=== PATIENT | female | born 1955 | race Caucasian/White ===

== ENCOUNTER 2016-08-07 18:49 | Inpatient (IN) ==
[2016-08-07] MEDS ORDERED: Ondansetron 4 MG/2 ML VIAL IVP ONE (18:51)
[2016-08-07] MEDS ORDERED: *HR* HYDROmorphone (PF) 1 MG/ML SYRINGE IVP ONE ×2 (18:51→19:03)
--- NOTE | 2016-08-07 18:57 | Emergency Department Note ---
Disposition Clinical Impression: Femoral fracture Qualifiers: Encounter type: initial encounter Femur location: unspecified portion of femur Fracture type: closed Fracture morphology: unspecified fracture morphology Laterality: left Qualified Code(s): S72.92XA - Unspecified fracture of left femur, initial encounter for closed fracture Disposition: Admitted As Inpatient Condition: Good Lower Extremity Injury HPI - General Chief Complaint: ED Extremity Injury, Lower Stated Complaint: Broked left leg Time Seen by Provider: 08/07/16 18:51 Source: patient Mode of arrival: EMS Limitations: physical limitation Nursing Notes Reviewed: Yes Vital Signs Reviewed: Yes - History of Present Illness HPI Narrative: 61-year-old female presents to the ER with a chief complaint of left hip and proximal thigh pain. Patient arrives via EMS. She reports that prior to arrival that she was walking through her house and slipped on her [employer] wrestling belt. She states that she fell on her left side around her hip causing pain. She denies any head injury or loss of consciousness. She is not on any antiplatelet or anticoagulation. EMS was called and the patient was transported in. She has an obvious deformity to left proximal thigh. She denies any numbness tingling or paresthesias. No other complaints. 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 Cardiovascular: Denies: chest pain Respiratory: Denies: dyspnea Gastrointestinal: Denies: abdominal pain Musculoskeletal: Reports: other (Left hip pain). Denies: back pain, neck pain Neurological: Denies: headache, numbness, paresthesias Past Medical History - Past Medical History Attestation: Yes The following information was validated with the patient. Source: patient Medical history: Reports: non-contributory Surgical history: Reports: non-contributory - Social History Smoking Status: Current every day smoker Smokeless Tobacco Status: No Alcohol use: Reports: unknown Physical Exam - General Limitations: physical limitation General appearance: alert, in no apparent distress - Head Head exam: atraumatic, normocephalic, normal inspection - Eye Eye exam: Present: normal appearance, EOMI - ENT ENT exam: normal exam - Neck Neck exam: Present: normal inspection, full ROM - Chest Chest inspection: Present: normal inspection, symmetric chest wall rise - Respiratory Respiratory exam: Present: normal lung sounds bilaterally - Cardiovascular Cardiovascular exam: Present: regular rate, normal rhythm, normal heart sounds - Abdominal Exam Abdominal exam: Present: soft, Non-Tender. Absent: tenderness - Extremities Exam Extremities exam: Present: normal inspection, full ROM - Expanded Upper Extremity Exam Shoulder exam: Present: normal inspection, full ROM Arm exam: Present: normal inspection, full ROM Elbow exam: Present: normal inspection, full ROM Forearm/Wrist exam: Present: normal inspection, full ROM Hand exam: Present: normal inspection, full ROM - Expanded Lower Extremity Exam Hip/Pelvis exam: Present: tenderness (Tenderness to the lateral aspect of the proximal thigh.), swelling (Swelling of the left proximal lateral thigh), deformity (The left lower extremity is outwardly rotated and shortened in comparison to the right lower extremity.). Absent: full ROM Upper leg exam: Absent: full ROM Knee exam: Present: normal inspection, full ROM Lower leg exam: Present: normal inspection, full ROM Ankle exam: Present: normal inspection, full ROM Foot/toe exam: Present: normal inspection, full ROM Neurovascular/Tendon exam: Absent: motor deficit, sensory deficit - Neurological Exam Neurological exam: Present: alert - Expanded Neurological Exam Patient oriented to: Present: person, place, time Speech: Present: fluid speech Motor strength - LUE: 5/5 Motor strength - RUE: 5/5 Motor strength - LLE: 5/5 Motor strength - RLE: 5/5 Sensory exam upper extremity: light touch: Normal Sensory exam lower extremity: light touch: Normal Coma Scale Eye Opening: Spontaneous Coma Scale Motor Response: Obeys Commands Coma Scale Verbal Response: Oriented Coma Scale Total: 15 - Psychiatric Psychiatric exam: Present: normal affect, normal mood - Skin Skin exam: Present: warm, dry, intact, normal color Course Course Narrative: Patient seen and examined. Vital signs reviewed. She has an obvious deformity to the left proximal thigh. Patient will be provided with IV pain medication and nausea medication. We will get x-rays of the left hip and femur. Disposition pending. - Reevaluation(s) Reevaluation #1: I discussed the imaging results with the patient. - Consultations Consultation #1: I discussed this case with the on-call orthopedic surgeon Dr. Gusman. Discussed imaging and findings. He requested to admit the patient to the hospital service and he will consult in the morning. Time: 19:46 Vital Signs Temperature 97.9 F 08/07/16 18:50 Pulse Rate 89 08/07/16 18:50 Respiratory Rate 18 08/07/16 18:50 Blood Pressure 142/81 08/07/16 18:50 O2 Sat by Pulse Oximetry 97 08/07/16 18:50 Temperature 97.9 F 08/07/16 18:50 Pulse Rate 82 08/07/16 19:57 Respiratory Rate 18 08/07/16 19:57 Blood Pressure 149/81 08/07/16 19:57 O2 Sat by Pulse Oximetry 96 08/07/16 19:57 Oxygen Delivery Oxygen Delivery Room Air Extremity Injury, Lower - MDM Narrative Medical decision making narrative: 61-year-old female presents to the ER due to the fall. Patient landed on her left side. Having pain around her left hip. X-ray here shows a fracture of the femoral neck by my read. Radiology results still pending. Case discussed with the orthopedic surgeon who requested admission to the hospitalist service and he will consult in the morning. - Lab Data Result diagrams: 08/07/16 20:09 Lab Results 08/07/16 Range/Units 20:09 WBC 14.1 H (4.3-11.1) K/mcL RBC 4.93 (3.82-4.97) M/mcL Hgb 14.8 (11.5-15.4) g/dL Hct 43.9 (35.3-44.9) % MCV 89.0 (83.0-100.0) fL MCH 30.0 (28.0-33.3) pg MCHC 33.7 (31.6-35.5) g/dL RDW 12.0 (11.5-14.5) % Plt Count 258 (140-400) K/mcL MPV 9.9 (9.4-12.4) fL Immature Gran % 0.8 (0-4) % Seg Neutrophils % 81.2 % Lymphocytes % 13.0 % Monocytes % 4.2 % Eosinophils % 0.3 % Basophils % 0.5 % Neutrophils # 11.5 H (1.6-8.9) K/mcL Lymphocytes # 1.8 (0.6-4.6) K/mcL Monocytes # 0.6 (0.0-1.3) K/mcL Eosinophils # 0.0 (0.0-0.6) K/mcL Basophils # 0.1 (0.0-0.2) K/mcL - Radiology Data Radiology results reviewed: Yes I reviewed the patient's radiology results. Pelvis X-Ray 08/07/16 18:51 IMPRESSION: Acute displaced proximal left femur fracture without dislocation. D/ / Suad Stephenson MD / Suad Stephenson MD Interpreting Provider: Suad Stephenson MD Femur X-Ray 08/07/16 18:52 IMPRESSION: Acute displaced proximal left femur fracture without dislocation. D/ / Suad Stephenson MD / Suad Stephenson MD Interpreting Provider: Suad Stephenson MD Alejandro - S.ElianaAMathew Situation: Demographics, MOA Background: Presenting Complaint, Relevant PMH, Meds, & Allergies Assessment: Course and respsone to treatment, Exam Concerns, Patient/Family Expectation, Pertinant Lab Results, Outstanding Labs Recommendation: Barrier(s) to disposition, Recommendation based on pending studies, treatments, or consults S.B.AMathew Report Given to: Dr. Sukh Allen Repor Time: 20:24
--- NOTE | 2016-08-07 19:02 | Emergency Department Note ---
START Narrative - START START: I examined this patient and my medical decision-making was reviewed with the EQUINE BREEDER/PA/Advanced Practice Nurse/Resident Physician. I agree with the documented findings, disposition and treatment plan as described except to the extent set forth below. ED attending note: Patient seen with emergency medicine resident Dr. Fair. We independently evaluated the patient. We independently had [id number] contact with the patient. Please see a copy of his note for details of the history and physical, evaluation, management and disposition of this emergency Department patient. Briefly: A 61-year-old female mechanical trip and fall over her son's wrestling meet else onto her left hip. Unable to weight-bear. Shortening and deformity and external rotation of the left lower extremity. Neurovascularly intact. Transported by EMS to the ED. Patient was given Dilaudid and Zofran IV x-ray is pending with suspected left hip fracture. Disposition pending. Patient stable. No other injury per patient. Patient is not on blood thinners.
[2016-08-07 20:16] LABS: Basophils # 0.1 K/mcL (0.0-0.2); Basophils % 0.5 %; Eosinophils % 0.3 %; Hematocrit 43.9 % (35.3-44.9); Hemoglobin 14.8 g/dL (11.5-15.4); Immature Granulocytes % 0.8 % (0-4); Lymphocytes # 1.8 K/mcL (0.6-4.6); Mean Corpuscular HGB Conc 33.7 g/dL (31.6-35.5); Mean Platelet Volume 9.9 fL (9.4-12.4); Monocytes # 0.6 K/mcL (0.0-1.3); Monocytes % 4.2 %; Neutrophils # 11.5 K/mcL (1.6-8.9); Platelet Count 258 K/mcL (140-400); Red Blood Count 4.93 M/mcL (3.82-4.97); Segmented Neutrophils % 81.2 %
[2016-08-07 20:28] LABS: BUN/Creatinine Ratio 22 (6-26); Blood Urea Nitrogen 19 mg/dL (7-20); Calcium 9.9 mg/dL (8.6-10.8); Carbon Dioxide 19 mEq/L (19-29); Chloride 104 mEq/L (98-109); Glucose 320 mg/dL (70-99); Osmolality,Calculated 295 (280-300); Potassium 4.2 mEq/L (3.5-4.5); Sodium 135 mEq/L (136-145); eGFR For African Americans > 60 (> 60); eGFR For Non-African Americans > 60 (> 60)
[2016-08-07 20:37] LABS: Prothrombin Time 11.1 Seconds (9.4-12.1)
[2016-08-07] MEDS ORDERED: *HR* Morphine 2 MG/ML SYRINGE IVP ONE (21:21)
[2016-08-07] MEDS ORDERED: Ondansetron 4 MG/2 ML VIAL IVP PRN (21:59)
--- NOTE | 2016-08-07 22:07 | Internal Med History&Physical ---
Date of Encounter: 08/07/16 Time of Encounter: 22:03 Assessment and Plan (1) Diabetes mellitus type 2 in nonobese Current visit: Yes Status: Acute Patient is diabetic for 15 years. However for the past year she has not been taking any medications because of side effects. Will check hemoglobin A-1 C. Most of the time during the 15 years she has been on metformin and another medication which she does not recall. She was then started on januvia. I discussed with her the importance of restarting diabetes medications undischarged. Her random blood sugar is 320. With sliding scale insulin for now. (2) Preoperative clearance Current visit: Yes Status: Acute Patient has no history of coronary disease. Denies any chest pain with exertion. Electrocardiogram shows no ST segment shifts. Functional capacity is fair. Clinical predictors include only diabetes mellitus. Patient should be able to sit for surgery with no need for further preoperative cardiac testing. (3) Femoral fracture Current visit: Yes Status: Acute Keep NPO after midnight for possible surgery in a.m. Qualifiers: Encounter type: initial encounter Femur location: unspecified portion of femur Fracture type: closed Fracture morphology: unspecified fracture morphology Laterality: left Qualified Code(s): S72.92XA - Unspecified fracture of left femur, initial encounter for closed fracture Internal Medicine - H&P: HPI Chief complaint: fall, left hip pain History of present illness: Ms. Lowe is a 61 year old female with 15 year history of type II diabetes mellitus on oral hypoglycemic not been taking medicines for the past year because of side effects, lifelong smoker but 50 pack year smoking history presents to the emergency room today after a fall. Patient mentioned that she tripped in her grand son wrunm carrie tingley hospitalling belt. She fell on her left hip and after that she experienced severe pain and was unable to move or bear weight on the left lower extremity. She denied any other traumatic injury. She denied head trauma. She denies passing out or feeling lightheaded chest pain palpitations prior to the fall. She denies any focal weakness. She denies prior history of falls. No recent febrile illness. Imaging in the emergency room showed evidence of left femur fracture. Patient denies any chest pain at rest or with exertion. Functional capacity is fair. Past Med Surg Social Fam HX - Past Medical History Medical history: diabetes - Past Surgical History Surgical History: cholecystectomy - Social History Smoking Status: Current every day smoker Packs per day: 1.5 Smokeless Tobacco Status: No Alcohol use: unknown Drug use: none Internal Medicine - H&P: Meds Naproxen [Naprosyn] 500 mg PO BID 5 Days 12/03/15 [Rx] Allergies No Known Allergies Allergy (Verified 12/03/15 19:27) All Systems PM: A 10-system review of systems was performed and is negative for pertinent findings except as documented above in the HPI. Review of systems: 10 point review of systems is negative except for HPI - Constitutional Vitals: Temp Pulse Resp BP Pulse Ox 98.4 F 87 16 125/70 94 08/07/16 21:14 08/07/16 21:14 08/07/16 21:14 08/07/16 21:14 08/07/16 21:14 Exam: Gen.: patient is alert oriented times 3 cardiac: normal S1 S2 no additional sounds or murmurs chest: no active wheezing or bronchial breathing abdomen soft nontender nondistended normal bowel sounds lower extremity left leg shortened and externally rotated Neuro: no new focal deficits Internal Med - H&P Results - Labs CBC & Chem 7: 08/07/16 20:09 08/07/16 20:09
[2016-08-07] MEDS: Insulin LISPRO 300 UNITS/3 ML VIAL SQ SCH (22:32)
[2016-08-07] MEDS: *HR* HYDROmorphone (PF) 1 MG/ML SYRINGE IVP PRN (22:50)
[2016-08-08] MEDS: *HR* HYDROmorphone (PF) 1 MG/ML SYRINGE IVP PRN ×4 (03:39→20:57)
[2016-08-08 05:40] LABS: Basophils % 0.3 %; Hematocrit 42.1 % (35.3-44.9); Hemoglobin 14.3 g/dL (11.5-15.4); Immature Granulocytes % 0.7 % (0-4); Lymphocytes # 1.4 K/mcL (0.6-4.6); Lymphocytes % 11.3 %; Mean Corpuscular Volume 91.1 fL (83.0-100.0); Mean Platelet Volume 10.1 fL (9.4-12.4); Monocytes # 0.8 K/mcL (0.0-1.3); Monocytes % 6.6 %; Neutrophils # 10.1 K/mcL (1.6-8.9); Platelet Count 248 K/mcL (140-400); Red Blood Count 4.62 M/mcL (3.82-4.97); Red Cell Distribution Width 12.2 % (11.5-14.5); Segmented Neutrophils % 81.1 %
[2016-08-08 05:48] LABS: Hemoglobin A1C 12.3 %
[2016-08-08 05:54] LABS: BUN/Creatinine Ratio 20 (6-26); Blood Urea Nitrogen 17 mg/dL (7-20); Calcium 9.4 mg/dL (8.6-10.8); Carbon Dioxide 23 mEq/L (19-29); Chloride 105 mEq/L (98-109); Glucose 325 mg/dL (70-99); Magnesium 1.8 mg/dL (1.6-2.6); Osmolality,Calculated 296 (280-300); Potassium 4.7 mEq/L (3.5-4.5); Sodium 136 mEq/L (136-145); eGFR For African Americans > 60 (> 60); eGFR For Non-African Americans > 60 (> 60)
--- NOTE | 2016-08-08 07:13 | Orthopedic Consult Note ---
Date of Encounter: 08/08/16 Time of Encounter: 07:11 History of Present Illness HPI: Ms. Lowe is a 61 year old female Status post fall when she tripped over a toy. Complains of pain in her left hip. Denies any head trauma. Alert and oriented 3 Left lower extremity shortened external rotated Decreased range of motion secondary to pain Neurovascular intact X-rays left intertrochanteric hip fracture Plan left hip open reduction internal fixation. We reviewed the risks and benefits as well as recovery. All questions were answered. Past Med Surg Social Fam HX - Past Medical History Medical history: diabetes - Past Surgical History Surgical History: cholecystectomy - Social History Smoking Status: Current every day smoker Packs per day: 1.5 Smokeless Tobacco Status: No Alcohol use: unknown Drug use: none Medications and Allergies Naproxen [Naprosyn] 500 mg PO BID 5 Days 12/03/15 [Rx] Allergies No Known Allergies Allergy (Verified 12/03/15 19:27) All Systems Reviewed: A 10-system review of systems was performed and is negative for pertinent findings except as documented above in the HPI. Physical Exam - Constitutional Vitals: Temp Pulse Resp BP Pulse Ox 98 F 97 16 114/68 98 08/08/16 06:43 08/08/16 06:43 08/08/16 06:43 08/08/16 06:43 08/08/16 06:43 Results - Labs Result Diagrams: 08/08/16 05:26 08/08/16 05:26 Labs: Abnormal lab results WBC 12.4 K/mcL (4.3-11.1) H 08/08/16 05:26 Neutrophils # 10.1 K/mcL (1.6-8.9) H 08/08/16 05:26 Potassium 4.7 mEq/L (3.5-4.5) H 08/08/16 05:26 Glucose 325 mg/dL (70-99) H 08/08/16 05:26 POC Glucose 322 (58-89) H 08/07/16 22:03 Hemoglobin A1c 12.3 % (-5.6) H 08/08/16 05:26 H & H 08/08/16 Range/Units 05:26 Hgb 14.3 (11.5-15.4) g/dL Hct 42.1 (35.3-44.9) % All other labs normal. Consult Discharge Plan - Plan Referrals: Shanell Carrlol MD [Primary Care Provider] -
[2016-08-08] MEDS: Insulin LISPRO 300 UNITS/3 ML VIAL SQ SCH ×4 (07:23→20:46)
[2016-08-08] MEDS ORDERED: Albuterol 2.5 MG/3 ML NEBULIZER ONE (07:55)
[2016-08-08] MEDS ORDERED: Albuterol 2.5 MG/3 ML NEBULIZER IH ONE (07:59)
--- NOTE | 2016-08-08 08:23 | Anesthesia Evaluation PreOp ---
Date of Encounter: 08/08/16 Time of Encounter: 08:30 - Past History Planned Operation: Left Hip TFN Cardiac History: HTN, Hyperlipidemia Pulmonary History: Smoker, COPD GROUND SYSTEMS ENGINEER History: Denies Any Significant HX Other Medical History: Diabetes Type II Anesthesia History: No Prior Anesthetic Complications : No Alcohol Use: unknown Drug use: none Medications and Allergies Naproxen [Naprosyn] 500 mg PO BID 5 Days 12/03/15 [Rx] Allergies No Known Allergies Allergy (Verified 12/03/15 19:27) - Meds/Allergy Pre-op Review Medications Reviewed: Yes Allergies Reviewed: Yes Beta Blockers on Current Med List: No Anesthesia Results - Labs 08/08/16 05:26 08/08/16 05:26 Anesthesia Exam O2 Sat Height 1.68 m Weight 58.967 kg O2 Sat by Pulse Oximetry 98 O2 Sat by Pulse Oximetry 98 O2 Sat by Pulse Oximetry 94 O2 Sat by Pulse Oximetry 96 O2 Sat by Pulse Oximetry 97 Vital Signs Temp Pulse Resp BP Pulse Ox 97.9 F 89 18 142/81 97 08/07/16 18:50 08/07/16 18:50 08/07/16 18:50 08/07/16 18:50 08/07/16 18:50 Height: 5'6 Weight: 130 lbs NPO (# of Hours): MN Pain Scale: 0 - HEENT Pupil (Motor): Pupils equal, EOMI Mallampati: II Teeth: Normal Oral Opening: Less than or equal to 3 - GROUND SYSTEMS ENGINEER LOC: Confused GROUND SYSTEMS ENGINEER Motor: Normal RUE, Normal LUE, Normal RLE, Normal LLE, Normal Face GROUND SYSTEMS ENGINEER Sensory: Normal: RUE, LUE, RLE, LLE, Face - Cardiac Rhythm: Regular Murmur: None JVD: No Carotid Bruit: No - Pulmonary Breath Sounds: bilateral Clear Respiratory Effort: Symmetrical Anesthesia Assess/Plan ASA Score: 3 (Dementia CAD) Modified Jenelle Scale for Level of Consciousness: Cooperative, oriented, and tranquil Anesthetic Plan: General Monitoring Plan: Standard Monitors Recovery Plan: PACU (Discussed GA)
[2016-08-08] MEDS ORDERED: *HR* Propofol 200 MG/20 ML VIAL IVP ONE (08:37)
[2016-08-08] MEDS ORDERED: Ondansetron 4 MG/2 ML VIAL ONE (08:38)
[2016-08-08] MEDS ORDERED: Lidocaine -MPF 2% 2 ML VIAL ONE (08:38)
[2016-08-08] MEDS ORDERED: Dexamethasone 4 MG/ML VIAL ONE (08:38)
[2016-08-08] MEDS ORDERED: *HR* FentaNYL (PF) 100 MCG/2 ML VIAL ONE (08:38)
[2016-08-08] MEDS ORDERED: *HR* Phenylephrine 10 MG/ML VIAL ONE (08:58)
[2016-08-08] MEDS ORDERED: Famotidine 20 MG/2 ML VIAL IVP SCH (09:00)
[2016-08-08] MEDS ORDERED: *HR* HYDROmorphone 2 MG/ML SYRINGE ONE (09:12)
[2016-08-08] MEDS ORDERED: ceFAZolin 2,000 MG in D5% in Water (Mini-Bag+) 100 ML IVPB ONE (09:13)
--- NOTE | 2016-08-08 09:25 | Orthopedic Operative Note ---
Date of procedure: 08/08/16 Pre-op diagnosis: Displaced left subtrochanteric/intertrochanteric hip fracture Post-op diagnosis: same Procedure: Procedure: Left hip open reduction intramedullary nail fixation Estimated blood loss: 50 cc Hardware: Metal: 130 degree: 10 x 2 35 Synthes TFN, 95 mm helical blade, 36 mm distal locking bolt Operative procedure: The patient was brought to the operating room and placed on the operating room table. After general anesthesia was administered the well leg was place in the well leg grimes and the operative leg was placed in the fracture leg grimes. All pressure points were padded appropriately. The operative extremity was prepped and draped in the sterile surgical fashion patient received IV antibiotic prior to skin incision. A standard direct lateral approach was made over the entry point of the greater trochanter, the incision was made through the skin and subcutaneous tissue hemostasis was obtained with Bovie cautery. Using careful sharp dissection the fascia was identified and incised, flouroscopic assistance was used to identify the entry point. The guidepin was placed at the entry point using fluroscopic assistance, it was over reamed with the proximal reamer. The 10 x 2 35 nail was placed through the entry hole, across the fracture site into the distal fragment the position was confirmed with fluroscopy. A guide pin was placed through the proximal locking guide from the lateral femur through the nail across the fracture site into the femoral head, it was over reamed with the reamer. The entry 5 mm helical blade was placed over the guide pin through the nail into the femoral head, locked in place with the proximal locking bolt. A 6 mm Distal locking bolt was placed through the distal locking guide. position of hardware and fracture reduction found to be acceptable with fluroscopic assistance. The wound was irrigated. Fascia was closed with a running #2 PDS suture. The deep tissue was irrigated and closed deep with #1 PDS suture superficially with 0 PDS suture and skin was closed with husam The patient was placed in a sterile dressing The patient was extubated and transferred to the recovery room in stable condition. Anesthesia: GETA Surgeon: Marlon Gusman Condition: stable Disposition: PACU
--- NOTE | 2016-08-08 09:49 | Anesthesia Evaluation Post Op ---
Date of Encounter: 08/08/16 Time of Encounter: 10:00 - Vital Signs Vital Signs: Vital Signs/O2 Sat/Glucose, Most Current Temp Pulse Resp BP Pulse Ox 08/08/16 09:45 89 16 87/61 93 08/08/16 09:35 97.9 F 90 16 111/99 96 08/08/16 06:43 98 F 97 16 114/68 98 - Lungs Lungs: Clear Ascult./Percussion - Airway Airway: Non-obstructed - Cardiovascular Regular Rate - Mental Status Mental Status: Alert & Oriented, Answers Appropriately - Nausea Vomiting Nausea Vomiting: Not Present - Hydration Hydration: Ice chips - Discharge PostOp Status: Transfer Patient to floor
[2016-08-08] MEDS ORDERED: Famotidine 20 MG/2 ML VIAL ONE (10:02)
[2016-08-08] MEDS ORDERED: Acetaminophen IV 1,000 MG/100 ML INFUS..BTL ONE (10:02)
[2016-08-08 10:04] LABS: Hemoglobin 14.1 g/dL (11.5-15.4)
[2016-08-08] MEDS ORDERED: Ondansetron 4 MG/2 ML VIAL IVP PRN ×2 (10:13→13:49)
[2016-08-08] MEDS ORDERED: *HR* OxyCODONE Immed Rel 5 MG TABLET PO PRN ×2 (10:13)
[2016-08-08] MEDS ORDERED: Naloxone 0.4 MG/ML INJ IVP PRN ×2 (10:13→13:47)
[2016-08-08] MEDS ORDERED: *HR* HYDROmorphone (PF) 1 MG/ML SYRINGE IVP PRN (10:13)
[2016-08-08] MEDS ORDERED: Insulin LISPRO 300 UNITS/3 ML VIAL SQ SCH (11:30)
[2016-08-08] MEDS ORDERED: Dextrose Gel 15 GM PO PRN ×2 (12:13)
[2016-08-08] MEDS ORDERED: *HR* Dextrose 50 % in Water (Syg) 50 ML SYRINGE IVP PRN (12:13)
[2016-08-08] MEDS ORDERED: D5% in Water 1,000 ML IVC PRN (12:13)
--- NOTE | 2016-08-08 12:35 | Internal Med Progress Note ---
Date of Encounter: 08/08/16 Time of Encounter: 12:30 - Assessment and plan (1) Hip fracture, left Current Visit: Yes Status: Acute Assessment and plan: Patient tripped at home and fell onto his left side. Appreciate ortho input. She underwent Left hip open reduction intramedullary nail fixation this morning. continue pain meds. Qualifiers: Encounter type: initial encounter Fracture type: closed Qualified Code(s) : S72.002A - Fracture of unspecified part of neck of left femur, initial encounter for closed fracture (2) Diabetes mellitus type 2 in nonobese Current Visit: Yes Status: Chronic Assessment and plan: glucose levels are high. levemir bid. iss. diabetic diet. - Subjective Interval history: patient complains of mild left hip fracture. - Constitutional Vitals: Temp Pulse Resp BP Pulse Ox 97.8 F 81 16 113/53 93 08/08/16 11:23 08/08/16 11:23 08/08/16 11:23 08/08/16 11:23 08/08/16 11:23 General appearance: Present: cooperative, A&O X 3, pleasant, no acute distress - Neck Neck exam general surgery: Present: supple, trachea midline. Absent: lymphadenopathy - Respiratory Respiratory exam: Present: CTAB - Cardiovascular Cardiovascular exam: Present: RRR - GI/Abdominal GI/Abdominal exam: Present: normal bowel sounds, soft. Absent: distended, tenderness - Extremities Exam Extremities exam: Absent: pedal edema - Back Exam Back exam: Absent: CVA tenderness (L), CVA tenderness (R) - Neurological Exam Neurological exam: Present: alert. Absent: facial droop, speech deficit - Skin Skin exam: Absent: rash Internal Medicine: Result - Labs CBC & Chem 7: 08/08/16 09:52 08/08/16 05:26 Labs: Short CBC 08/08/16 08/08/16 Range/Units 05:26 09:52 WBC 12.4 H (4.3-11.1) K/mcL Hgb 14.3 14.1 (11.5-15.4) g/dL Hct 42.1 42.0 (35.3-44.9) % Plt Count 248 (140-400) K/mcL Neutrophils # 10.1 H (1.6-8.9) K/mcL BMP 08/08/16 05:26 Sodium 136 Potassium 4.7 H Chloride 105 Carbon Dioxide 23 BUN 17 Creatinine 0.84 Glucose 325 H Calcium 9.4 - ABG Interpretation ABG results: PT/INR, D-dimer PT 11.1 Seconds (9.4-12.1) 08/07/16 20:09 - Impressions Impressions Fluoroscopy 08/08/16 00:00 IMPRESSION: Intraprocedural fluoroscopic spot images as above. See separate procedure report for more information. D/ / 08/08/2016 10:34:29 Tory Pride MD / bailee Interpreting Provider: Tory Pride MD Hip X-Ray 08/08/16 00:00 IMPRESSION: Intraprocedural fluoroscopic spot images as above. See separate procedure report for more information. D/ / 08/08/2016 10:34:29 Tory Pride MD / bailee Interpreting Provider: Tory Pride MD - VTE Documentation of Mechanical Device: Venous foot pump, device Consult Discharge Plan - Plan Referrals: Shanell Carroll MD [Primary Care Provider] -
[2016-08-08] MEDS: Insulin DETEMIR 100 UNIT/ML X5UNITS SQ SCH ×2 (14:14→20:46)
[2016-08-08] MEDS: *HR* OxyCODONE Immed Rel 5 MG TABLET PO PRN ×2 (14:15→18:22)
[2016-08-08] MEDS ORDERED: ceFAZolin 2,000 MG in D5% in Water 100 ML IVPB SCH (16:00)
[2016-08-08] MEDS: ceFAZolin 2,000 MG in D5% in Water 100 ML IVPB SCH (16:09)
[2016-08-09] MEDS: ceFAZolin 2,000 MG in D5% in Water 100 ML IVPB SCH (00:46)
[2016-08-09] MEDS: *HR* OxyCODONE Immed Rel 5 MG TABLET PO PRN ×4 (01:57→20:37)
[2016-08-09 04:09] LABS: Basophils % 0.2 %; Eosinophils % 0.1 %; Hematocrit 37.2 % (35.3-44.9); Hemoglobin 12.8 g/dL (11.5-15.4); Immature Granulocytes % 0.6 % (0-4); Lymphocytes # 2.1 K/mcL (0.6-4.6); Lymphocytes % 14.3 %; Mean Corpuscular HGB Conc 34.4 g/dL (31.6-35.5); Mean Corpuscular Hemoglobin 31.3 pg (28.0-33.3); Mean Platelet Volume 10.3 fL (9.4-12.4); Monocytes # 1.1 K/mcL (0.0-1.3); Monocytes % 7.4 %; Neutrophils # 11.3 K/mcL (1.6-8.9); Platelet Count 235 K/mcL (140-400); Red Blood Count 4.09 M/mcL (3.82-4.97); Red Cell Distribution Width 12.2 % (11.5-14.5); Segmented Neutrophils % 77.4 %
[2016-08-09 04:23] LABS: BUN/Creatinine Ratio 24 (6-26); Blood Urea Nitrogen 19 mg/dL (7-20); Calcium 8.9 mg/dL (8.6-10.8); Carbon Dioxide 25 mEq/L (19-29); Chloride 102 mEq/L (98-109); Glucose 155 mg/dL (70-99); Magnesium 1.7 mg/dL (1.6-2.6); Osmolality,Calculated 285 (280-300); Sodium 135 mEq/L (136-145); eGFR For African Americans > 60 (> 60); eGFR For Non-African Americans > 60 (> 60)
[2016-08-09] MEDS ORDERED: Famotidine 20 MG/2 ML VIAL ONE (08:07)
[2016-08-09] MEDS ORDERED: *HR* OxyCODONE Immed Rel 5 MG TABLET ONE (08:07)
[2016-08-09] MEDS: Insulin LISPRO 300 UNITS/3 ML VIAL SQ SCH ×4 (08:11→20:38)
[2016-08-09] MEDS: Famotidine 20 MG/2 ML VIAL IVP SCH (08:11)
[2016-08-09] MEDS ORDERED: Famotidine 20 MG/2 ML VIAL IVP SCH (09:00)
[2016-08-09] MEDS: *HR* HYDROmorphone (PF) 1 MG/ML SYRINGE IVP PRN (09:43)
--- NOTE | 2016-08-09 10:09 | Orthopedics Progress Note ---
Date of Encounter: 08/09/16 Time of Encounter: 10:08 Subjective Interval history: Patient was seen this morning doing well without complaints. Afebrile vital signs stable. Operative extremity: Neurovascularly intact Dressing clean dry and intact Calves nontender Assessment and plan: Continue with postoperative care Okay for discharge Objective Vital signs: Vital Signs Temp Pulse Resp BP Pulse Ox 08/09/16 07:18 98.7 F 78 16 116/69 93 08/09/16 04:19 98.2 F 79 15 123/64 94 08/08/16 23:58 98.1 F 75 14 118/67 92 08/08/16 20:54 98.6 F 89 16 115/66 93 08/08/16 12:48 97.1 F L 82 18 127/71 94 08/08/16 11:23 97.8 F 81 16 113/53 93 08/08/16 10:36 98.2 F 83 16 148/69 96 08/08/16 10:14 98.3 F 85 14 128/64 93 Intake and Output 08/08/16 08/09/16 08/09/16 23:59 07:59 15:59 Intake Total 750 / 750 300 / 300 Output Total 350 / 350 Balance 400 / 400 300 / 300 Intake: IV Fluids 100 / 100 100 / 100 Ancef 2,000 MG In 100 / 100 100 / 100 Dextrose 5% 100 ML @ 200 mls/hr IVPB Q8HR [facility] Rx#: [id number] Oral 650 / 650 200 / 200 Output: Urine 350 / 350 Other: Stool Size Moderate Stool Consistency soft Stool Color Brown Blood Glucose* 212 159 - Labs CBC & BMP: 08/09/16 03:32 08/09/16 03:32 Labs: Abnormal lab results WBC 14.5 K/mcL (4.3-11.1) H 08/09/16 03:32 Neutrophils # 11.3 K/mcL (1.6-8.9) H 08/09/16 03:32 Sodium 135 mEq/L (136-145) L 08/09/16 03:32 Glucose 155 mg/dL (70-99) H 08/09/16 03:32 POC Glucose 212 (58-89) H 08/08/16 20:16 Hemoglobin A1c 12.3 % (-5.6) H 08/08/16 05:26 - VTE Documentation of Mechanical Device: Venous foot pump, device Consult Discharge Plan - Plan Referrals: Shanell Carroll MD [Primary Care Provider] -
--- NOTE | 2016-08-09 10:41 | Internal Med Progress Note ---
Date of Encounter: 08/09/16 Time of Encounter: 10:30 - Assessment and plan (1) Hip fracture, left Current Visit: Yes Status: Acute Assessment and plan: Patient tripped at home and fell onto his left side. Appreciate ortho input. She underwent Left hip open reduction intramedullary nail fixation this morning. continue pain meds. Qualifiers: Encounter type: initial encounter Fracture type: closed Qualified Code(s) : S72.002A - Fracture of unspecified part of neck of left femur, initial encounter for closed fracture (2) Diabetes mellitus type 2 in nonobese Current Visit: Yes Status: Chronic Assessment and plan: poorly controlled DM. Ha1c 12.3. glucose levels are better. continue levemir bid. iss. diabetic diet. - Subjective Interval history: patient complains of left leg spams. - Constitutional Vitals: Temp Pulse Resp BP Pulse Ox 98.7 F 78 16 116/69 93 08/09/16 07:18 08/09/16 10:14 08/09/16 10:14 08/09/16 10:14 08/09/16 10:14 General appearance: Present: cooperative, A&O X 3, pleasant, no acute distress, answers questions appropriately - Neck Neck exam general surgery: Present: supple, trachea midline. Absent: lymphadenopathy - Respiratory Respiratory exam: Present: CTAB - Cardiovascular Cardiovascular exam: Present: RRR - GI/Abdominal GI/Abdominal exam: Present: normal bowel sounds, soft. Absent: distended, tenderness - Extremities Exam Extremities exam: Absent: pedal edema - Back Exam Back exam: Absent: CVA tenderness (L), CVA tenderness (R) - Neurological Exam Neurological exam: Present: alert, oriented X3, no focal deficits, strengths equal and symetr throughout. Absent: facial droop, speech deficit - Skin Skin exam: Absent: rash Internal Medicine: Result - Labs CBC & Chem 7: 08/09/16 03:32 08/09/16 03:32 Labs: Short CBC 08/09/16 Range/Units 03:32 WBC 14.5 H (4.3-11.1) K/mcL Hgb 12.8 (11.5-15.4) g/dL Hct 37.2 (35.3-44.9) % Plt Count 235 (140-400) K/mcL Neutrophils # 11.3 H (1.6-8.9) K/mcL BMP 08/09/16 03:32 Sodium 135 L Potassium 4.0 Chloride 102 Carbon Dioxide 25 BUN 19 Creatinine 0.80 Glucose 155 H Calcium 8.9 - ABG Interpretation ABG results: PT/INR, D-dimer PT 11.1 Seconds (9.4-12.1) 08/07/16 20:09 - Impressions Impressions Fluoroscopy 08/08/16 00:00 IMPRESSION: Intraprocedural fluoroscopic spot images as above. See separate procedure report for more information. D/ / 08/08/2016 10:34:29 Tory Pride MD / bailee Interpreting Provider: Tory Pride MD Hip X-Ray 08/08/16 00:00 IMPRESSION: Intraprocedural fluoroscopic spot images as above. See separate procedure report for more information. D/ / 08/08/2016 10:34:29 Tory Pride MD / bailee Interpreting Provider: Tory Pride MD - VTE Documentation of Mechanical Device: Venous foot pump, device Consult Discharge Plan - Plan Referrals: Shanell Carroll MD [Primary Care Provider] -
[2016-08-09] MEDS: Insulin DETEMIR 100 UNIT/ML X5UNITS SQ SCH ×2 (11:05→20:39)
--- NOTE | 2016-08-09 16:46 | Electrocardiograph Report ---
[place] [id number] Test Date: 2016-08-07 Pat Name: Jammie Lowe Department: 114 Room: [facility] Gender: F [employer]: : 1955 Requested By: Elis Hicks Order Number: [id number] Reading MD: Lamberto Rudd MD Measurements Intervals [place] Rate: 83 P: 47 ND: 145 QRS: 33 QRSD: 89 T: 42 QT: 378 QTc: 418 Interpretive Statements SINUS RHYTHM Electronically Signed On 08-09-2016 16:44:51 EDT by Lamberto Rudd MD
[2016-08-10] MEDS: *HR* HYDROmorphone (PF) 1 MG/ML SYRINGE IVP PRN ×2 (04:10→16:27)
[2016-08-10 05:47] LABS: Basophils # 0.1 K/mcL (0.0-0.2); Basophils % 0.5 %; Eosinophils % 0.4 %; Hematocrit 34.7 % (35.3-44.9); Immature Granulocytes % 0.8 % (0-4); Lymphocytes # 1.7 K/mcL (0.6-4.6); Lymphocytes % 17.2 %; Mean Corpuscular HGB Conc 34.6 g/dL (31.6-35.5); Mean Corpuscular Hemoglobin 31.3 pg (28.0-33.3); Mean Corpuscular Volume 90.4 fL (83.0-100.0); Mean Platelet Volume 10.1 fL (9.4-12.4); Monocytes # 0.8 K/mcL (0.0-1.3); Monocytes % 8.5 %; Platelet Count 211 K/mcL (140-400); Red Blood Count 3.84 M/mcL (3.82-4.97); Red Cell Distribution Width 12.2 % (11.5-14.5); Segmented Neutrophils % 72.6 %
[2016-08-10 06:10] LABS: BUN/Creatinine Ratio 29 (6-26); Blood Urea Nitrogen 20 mg/dL (7-20); Calcium 8.8 mg/dL (8.6-10.8); Carbon Dioxide 27 mEq/L (19-29); Chloride 103 mEq/L (98-109); Glucose 92 mg/dL (70-99); Osmolality,Calculated 284 (280-300); Potassium 3.6 mEq/L (3.5-4.5); Sodium 136 mEq/L (136-145); eGFR For African Americans > 60 (> 60); eGFR For Non-African Americans > 60 (> 60)
[2016-08-10] MEDS: Insulin LISPRO 300 UNITS/3 ML VIAL SQ SCH ×4 (07:32→21:10)
[2016-08-10] MEDS: Famotidine 20 MG/2 ML VIAL IVP SCH (09:00)
[2016-08-10] MEDS: *HR* OxyCODONE Immed Rel 5 MG TABLET PO PRN ×2 (09:00→21:09)
[2016-08-10] MEDS: Insulin DETEMIR 100 UNIT/ML X5UNITS SQ SCH ×2 (09:00→21:10)
--- NOTE | 2016-08-10 16:16 | Internal Med Progress Note ---
Date of Encounter: 08/10/16 Time of Encounter: 16:13 - Assessment and plan (1) Hip fracture, left Current Visit: Yes Status: Acute Assessment and plan: Patient tripped at home and fell onto his left side. Status post Left hip open reduction intramedullary nail fixation . continue OxyCodone The patient will consider going to a rehabilitation facility as she refused initially Discharge planning for the morning if stable Qualifiers: Encounter type: initial encounter Fracture type: closed Qualified Code(s) : S72.002A - Fracture of unspecified part of neck of left femur, initial encounter for closed fracture (2) Tobacco use Current Visit: Yes Status: Acute Assessment and plan: Smoking cessation counseling given for 5 minutes nicotine patch offered and refused (3) Diabetes mellitus type 2 in nonobese Current Visit: Yes Status: Chronic Assessment and plan: poorly controlled DM. Ha1c 12.3. glucose levels are better. continue levemir bid. iss. diabetic diet. (4) Hyperlipidemia Current Visit: Yes Status: Acute Qualifiers: Hyperlipidemia type: pure hypercholesterolemia Qualified Code(s): E78.00 - Pure hypercholesterolemia, unspecified; E78.0 - Pure hypercholesterolemia - Subjective Interval history: The patient says that she is having a lot of pain on her left hip, denies any shortness of breath, no chest pain, no fevers no dysuria no diarrhea or abdominal pain. - Constitutional Vitals: Temp Pulse Resp BP Pulse Ox 99.6 F 96 17 109/68 91 08/10/16 15:46 08/10/16 15:46 08/10/16 15:46 08/10/16 15:46 08/10/16 15:46 General appearance: Present: cooperative, A&O X 3, pleasant, no acute distress, answers questions appropriately - Head Head exam: Present: atraumatic, normocephalic - Eye Eye exam: Present: PERRL, conjuntiva pink, sclera anicteric Pupils: Present: PERRL - Neck Neck exam general surgery: Present: supple, trachea midline. Absent: lymphadenopathy - Respiratory Respiratory exam: Present: CTAB. Absent: accessory muscle use, rales, rhonchi, wheezes - Cardiovascular Cardiovascular exam: Present: RRR, +S1, +S2. Absent: diastolic murmur, gallop, rubs, systolic murmur - GI/Abdominal GI/Abdominal exam: Present: normal bowel sounds, soft, no peritoneal signs. Absent: distended, tenderness - Extremities Exam Extremities exam: Present: warm, radial pulses palpable and symetrical. Absent : calf tenderness, cyanotic, pedal edema Additional comments: Left hip surgical wound without signs of infection or hematoma - Neurological Exam Neurological exam: Present: CN II-XII intact, oriented X3, no focal deficits. Absent: pronater drift, facial droop, speech deficit - Skin Skin exam: Present: dry, intact Internal Medicine: Result - Labs CBC & Chem 7: 08/10/16 05:28 08/10/16 05:28 Labs: Short CBC 08/10/16 Range/Units 05:28 WBC 9.7 (4.3-11.1) K/mcL Hgb 12.0 (11.5-15.4) g/dL Hct 34.7 L (35.3-44.9) % Plt Count 211 (140-400) K/mcL Neutrophils # 7.0 (1.6-8.9) K/mcL BMP 08/10/16 05:28 Sodium 136 Potassium 3.6 Chloride 103 Carbon Dioxide 27 BUN 20 Creatinine 0.68 Glucose 92 Calcium 8.8 - ABG Interpretation ABG results: PT/INR, D-dimer PT 11.1 Seconds (9.4-12.1) 08/07/16 20:09 - Impressions Impressions Hip X-Ray 08/10/16 08:58 IMPRESSION: Improved alignment status post ORIF of the proximal left femur. No evidence of hardware complication. D/ / Jean Claude Negrete MD / Jean Claude Negrete MD Interpreting Provider: Jean Claude Negrete MD - VTE Documentation of Mechanical Device: Venous foot pump, device Consult Discharge Plan - Plan Referrals: Shanell Carroll MD [Primary Care Provider] -
[2016-08-10] MEDS: *HR* Enoxaparin 30 MG/0.3 ML SYRINGE SQ SCH (21:11)
[2016-08-11] MEDS: *HR* Enoxaparin 30 MG/0.3 ML SYRINGE SQ SCH ×2 (07:46→20:36)
[2016-08-11] MEDS: Famotidine 20 MG/2 ML VIAL IVP SCH (07:47)
[2016-08-11] MEDS: Insulin LISPRO 300 UNITS/3 ML VIAL SQ SCH ×4 (07:48→20:35)
[2016-08-11] MEDS: *HR* OxyCODONE Immed Rel 5 MG TABLET PO PRN ×4 (08:04→21:30)
--- NOTE | 2016-08-11 08:07 | Discharge Summary ---
Date of Encounter: 08/11/16 Time of Encounter: 08:01 - Discharge Diagnosis (1) Hip fracture, left Priority: Primary Status: Acute Comments: Displaced left subtrochanteric/intertrochanteric hip fracture s/p Left hip open reduction with intramedullary nail fixation Qualifiers: Encounter type: initial encounter Fracture type: closed Qualified Code(s) : S72.002A - Fracture of unspecified part of neck of left femur, initial encounter for closed fracture (2) Tobacco use Priority: Secondary Status: Acute (3) Diabetes mellitus type 2 in nonobese Priority: Secondary Status: Chronic (4) Hyperlipidemia Priority: Secondary Status: Acute Qualifiers: Hyperlipidemia type: pure hypercholesterolemia Qualified Code(s): E78.00 - Pure hypercholesterolemia, unspecified; E78.0 - Pure hypercholesterolemia - Discharge Medications Prescriptions: OxyCODONE Immed Rel [Roxicodone 5 MG] 10 mg PO Q4HR PRN #25 tablet PRN Reason: Pain Insulin ASPART [Novolog Flexpen] 3 unit SQ TID 30 Days Insulin DETEMIR [Levemir] 10 unit SQ BID 30 Days metFORMIN [Glucophage] 500 mg PO BIDWM #60 tablet Home Medications: Enoxaparin [Lovenox] 30 mg SQ BID syringe 08/11/16 [Rx] Insulin ASPART [Novolog Flexpen] 3 unit SQ TID 30 Days 08/11/16 [Rx] Insulin DETEMIR [Levemir] 10 unit SQ BID 30 Days 08/11/16 [Rx] Insulin LISPRO [HumaLOG] 0 units SQ HS vial 08/11/16 [Rx] Insulin LISPRO [HumaLOG] 0 units SQ TIDAC vial 08/11/16 [Rx] Lidocaine Patch [Lidoderm 5% patch] 1 each TP DAILY adh..patch 08/11/16 [Rx] OxyCODONE Immed Rel [Roxicodone 5 MG] 10 mg PO Q4HR PRN #25 tablet 08/11/16 [Rx] metFORMIN [Glucophage] 500 mg PO BIDWM #60 tablet 08/11/16 [Rx] Allergies/Adverse Reactions: Allergies No Known Allergies Allergy (Verified 08/08/16 14:19) Date of admission: 08/07/16 21:59 Primary care physician: Shanell Carroll Consults: 08/08/16 15:13 Consult to Tire Wrapper [CONS] Routine Reason for SW Consult: DISCHARGE PLANNING 08/08/16 15:14 Consult to Occupational Therapy [CONS] Routine Comment: Evaluate, develop and implement POC Reason for Consult: EVAL AND TREAT Consult to Physical Therapy [CONS] Routine Comment: Evaluate, develop and implement POC Reason for Consult: EVAL AND TREAT 08/08/16 15:16 Consult to Waterfront Director [CONS] Routine Comment: Reason for Consult: HgbA1C >12 08/08/16 15:17 Consult to Orthopedic Surgery [CONS] Routine Consulting Provider: Marlon Gusman Reason for Consult: Left femur fracture Call Completed: Yes - Patient Status Disposition: Transfer SNF Condition: Good Overall status at discharge: patient is progressing back to baseline - Discharge Instructions Follow Up With: Shanell Carroll MD [Primary Care Provider] - Additional Instructions: Follow with primary care physician within the next 7 days. Follow-up with orthopedic surgery within the next 2-3 weeks. Continue Levemir 10 units twice a day and NovoLog 3 units 3 times a day plus a sliding scale. Start metformin 500 mg twice daily. Continue Lovenox for DVT prophylaxis - Diet and Activity Activity: increase activity as tolerated Diet: diabetic diet Hospital course: Ms. Lowe is a 61 year old female with a past medical history of 15 year history of type II diabetes mellitus on oral hypoglycemic not been taking medicines for the past year because of side effects, lifelong smoker 50 pack year smoking history presented to the emergency room after a fall. Patient mentioned that she tripped in her grand [facility]. She fell on her left hip and after that she experienced severe pain and was unable to move or bear weight on the left lower extremity. She denied any other traumatic injury. She denied head trauma. She denied passing out or feeling lightheaded chest pain palpitations prior to the fall. She denied any focal weakness watson history of falls. No recent febrile illness. Imaging in the emergency room showed evidence of left femur fracture. Underwent a Left hip open reduction with intramedullary nail fixation. Also, her hemoglobin A1c was found to be 12.3. She was started on Levemir 10 units twice a day and insulin sliding scale. Initially the patient did not want to go to rehabilitation facility but now she has agreed as the pain on her left hip would not allow her to mobilize at home on her own. Time spent discussing smoking cessation with patient: 3 to 10 minutes - Time Spent with Patient Total time spent providing and/or coordinating discharge services: Greater than 30 minutes (40 min) - Constitutional Vitals: Temp Pulse Resp BP Pulse Ox 98.3 F 87 14 109/70 91 08/11/16 07:13 08/11/16 07:13 08/11/16 07:13 08/11/16 07:13 08/11/16 07:13 General appearance: Present: cooperative, A&O X 3, pleasant, no acute distress, answers questions appropriately - Head Head exam: Present: atraumatic, normocephalic - Eye Eye exam: Present: PERRL, conjuntiva pink, sclera anicteric Pupils: Present: PERRL - Neck Neck exam general surgery: Present: supple, trachea midline. Absent: lymphadenopathy - Respiratory Respiratory exam: Present: CTAB. Absent: accessory muscle use, rales, rhonchi, wheezes - Cardiovascular Cardiovascular exam: Present: RRR, +S1, +S2. Absent: diastolic murmur, gallop, rubs, systolic murmur - GI/Abdominal GI/Abdominal exam: Present: normal bowel sounds, soft, no peritoneal signs. Absent: distended, tenderness - Extremities Exam Extremities exam: Present: warm, radial pulses palpable and symetrical. Absent : calf tenderness, cyanotic, pedal edema - Neurological Exam Neurological exam: Present: CN II-XII intact, oriented X3, no focal deficits. Absent: pronater drift, facial droop, speech deficit - Skin Skin exam: Present: dry. Absent: intact (Left hip surgical wound without signs of hematoma or infection) - VTE Documentation of Mechanical Device: Venous foot pump, device
--- NOTE | 2016-08-11 08:13 | Physician Discharge Referral ---
[facility] Referral Info Provider in Charge after Transfer: PCP Institutional Level of Care: Skilled - Diagnosis (1) Hip fracture, left Status: Acute (2) Tobacco use Status: Acute (3) Diabetes mellitus type 2 in nonobese Status: Chronic (4) Hyperlipidemia Status: Acute - Transfer Medications Prescriptions: OxyCODONE Immed Rel [Roxicodone 5 MG] 10 mg PO Q4HR PRN #25 tablet PRN Reason: Pain Insulin ASPART [Novolog Flexpen] 3 unit SQ TID 30 Days Insulin DETEMIR [Levemir] 10 unit SQ BID 30 Days metFORMIN [Glucophage] 500 mg PO BIDWM #60 tablet Home Medications: Enoxaparin [Lovenox] 30 mg SQ BID syringe 08/11/16 [Rx] Insulin ASPART [Novolog Flexpen] 3 unit SQ TID 30 Days 08/11/16 [Rx] Insulin DETEMIR [Levemir] 10 unit SQ BID 30 Days 08/11/16 [Rx] Insulin LISPRO [HumaLOG] 0 units SQ HS vial 08/11/16 [Rx] Insulin LISPRO [HumaLOG] 0 units SQ TIDAC vial 08/11/16 [Rx] Lidocaine Patch [Lidoderm 5% patch] 1 each TP DAILY adh..patch 08/11/16 [Rx] OxyCODONE Immed Rel [Roxicodone 5 MG] 10 mg PO Q4HR PRN #25 tablet 08/11/16 [Rx] metFORMIN [Glucophage] 500 mg PO BIDWM #60 tablet 08/11/16 [Rx] Allergies/Adverse Reactions: Allergies No Known Allergies Allergy (Verified 08/08/16 14:19) - Respiratory Orders Smoking Cessation: Smoking cessation has been advised. For more information, call the [place] Tobacco Quit Line at 6-532-NFPJ-NOW. - Advance Directives Code Status: Full Code - Treatments List/Other: Follow with primary care physician within the next 7 days. Follow-up with orthopedic surgery within the next 2-3 weeks. Continue Levemir 10 units twice a day and NovoLog 3 units 3 times a day plus a sliding scale. Start metformin 500 mg twice daily. Continue Lovenox for DVT prophylaxis - Diet Orders No Concentrated Sweets (1800-calorie diet) CERTIFICATION: I certify that the transfer of the above named patient to an Extended Care Facility is necessary for the continuing treatment of the diagnosis listed. The above information is true and accurate reflection of patient's current condition. Confidential - Redisclosure prohibited without a patient's written consent.
[2016-08-11] MEDS: Insulin DETEMIR 100 UNIT/ML X5UNITS SQ SCH ×2 (08:19→20:35)
[2016-08-12] MEDS: Insulin LISPRO 300 UNITS/3 ML VIAL SQ SCH ×4 (08:25→21:20)
[2016-08-12] MEDS: Insulin DETEMIR 100 UNIT/ML X5UNITS SQ SCH ×2 (08:42→21:18)
[2016-08-12] MEDS: *HR* OxyCODONE Immed Rel 5 MG TABLET PO PRN ×4 (08:42→20:58)
[2016-08-12] MEDS: *HR* Enoxaparin 30 MG/0.3 ML SYRINGE SQ SCH ×2 (08:42→20:57)
[2016-08-12] MEDS: Famotidine 20 MG/2 ML VIAL IVP SCH (08:42)
--- NOTE | 2016-08-12 13:02 | Internal Med Progress Note ---
Date of Encounter: 08/12/16 Time of Encounter: 13:01 - Assessment and plan (1) Hip fracture, left Current Visit: Yes Status: Acute Assessment and plan: Patient tripped at home and fell onto his left side. Status post Left hip open reduction intramedullary nail fixation . continue OxyCodone The patient will be transferred [facility] after obtaining approval from her insurance Qualifiers: Encounter type: initial encounter Fracture type: closed Qualified Code(s) : S72.002A - Fracture of unspecified part of neck of left femur, initial encounter for closed fracture (2) Tobacco use Current Visit: Yes Status: Acute Assessment and plan: Smoking cessation counseling given for 5 minutes nicotine patch offered and refused (3) Diabetes mellitus type 2 in nonobese Current Visit: Yes Status: Chronic Assessment and plan: poorly controlled DM. Ha1c 12.3. glucose levels are better. continue levemir bid. iss. diabetic diet. Start metformin upon discharge (4) Hyperlipidemia Current Visit: Yes Status: Acute Qualifiers: Hyperlipidemia type: pure hypercholesterolemia Qualified Code(s): E78.00 - Pure hypercholesterolemia, unspecified; E78.0 - Pure hypercholesterolemia - Subjective Interval history: The patient says that she is still having a lot of pain on her left hip mainly when she moves around, denies any shortness of breath, no chest pain, no fevers no dysuria no diarrhea or abdominal pain. - Constitutional Vitals: Temp Pulse Resp BP Pulse Ox 98.3 F 85 16 110/61 94 08/12/16 11:02 08/12/16 11:02 08/12/16 11:02 08/12/16 11:02 08/12/16 11:02 General appearance: Present: cooperative, A&O X 3, pleasant, no acute distress, answers questions appropriately - Head Head exam: Present: atraumatic, normocephalic - Eye Eye exam: Present: PERRL, conjuntiva pink, sclera anicteric Pupils: Present: PERRL - Neck Neck exam general surgery: Present: supple, trachea midline. Absent: lymphadenopathy - Respiratory Respiratory exam: Present: CTAB. Absent: accessory muscle use, rales, rhonchi, wheezes - Cardiovascular Cardiovascular exam: Present: RRR, +S1, +S2. Absent: diastolic murmur, gallop, rubs, systolic murmur - GI/Abdominal GI/Abdominal exam: Present: normal bowel sounds, soft, no peritoneal signs. Absent: distended, tenderness - Extremities Exam Extremities exam: Present: warm, radial pulses palpable and symetrical. Absent : calf tenderness, cyanotic, pedal edema Additional comments: Left hip surgical wound without signs of infection or hematoma - Neurological Exam Neurological exam: Present: CN II-XII intact, oriented X3, no focal deficits. Absent: pronater drift, facial droop, speech deficit - Skin Skin exam: Present: dry, intact Internal Medicine: Result - Labs CBC & Chem 7: 08/10/16 05:28 08/10/16 05:28 - ABG Interpretation ABG results: PT/INR, D-dimer PT 11.1 Seconds (9.4-12.1) 08/07/16 20:09 - VTE Documentation of Mechanical Device: Venous foot pump, device Consult Discharge Plan - Plan Additional Instructions: Follow with primary care physician within the next 7 days. Follow-up with orthopedic surgery within the next 2-3 weeks. Continue Levemir 10 units twice a day and NovoLog 3 units 3 times a day plus a sliding scale. Start metformin 500 mg twice daily. Continue Lovenox for DVT prophylaxis Referrals: Shanell Carroll MD [Primary Care Provider] - Prescriptions: OxyCODONE Immed Rel [Roxicodone 5 MG] 10 mg PO Q4HR PRN #25 tablet PRN Reason: Pain Insulin ASPART [Novolog Flexpen] 3 unit SQ TID 30 Days Insulin DETEMIR [Levemir] 10 unit SQ BID 30 Days metFORMIN [Glucophage] 500 mg PO BIDWM #60 tablet
[2016-08-13] MEDS: *HR* OxyCODONE Immed Rel 5 MG TABLET PO PRN ×2 (06:11→13:34)
[2016-08-13] MEDS: Insulin DETEMIR 100 UNIT/ML X5UNITS SQ SCH (08:48)
[2016-08-13] MEDS: Insulin LISPRO 300 UNITS/3 ML VIAL SQ SCH ×2 (08:48→12:24)
[2016-08-13] MEDS: *HR* Enoxaparin 30 MG/0.3 ML SYRINGE SQ SCH (08:48)
[2016-08-13] MEDS: Famotidine 20 MG/2 ML VIAL IVP SCH (08:51)
--- NOTE | 2016-08-13 11:19 | Internal Med Progress Note ---
Date of Encounter: 08/13/16 Time of Encounter: 11:18 - Assessment and plan (1) Hip fracture, left Current Visit: Yes Status: Acute Assessment and plan: Patient tripped at home and fell onto his left side. Status post Left hip open reduction intramedullary nail fixation . continue OxyCodone The patient will be transferred to assisted facility for rehabilitation after obtaining approval from her insurance Qualifiers: Encounter type: initial encounter Fracture type: closed Qualified Code(s) : S72.002A - Fracture of unspecified part of neck of left femur, initial encounter for closed fracture (2) Tobacco use Current Visit: Yes Status: Acute Assessment and plan: Smoking cessation counseling given for 5 minutes nicotine patch offered and refused (3) Diabetes mellitus type 2 in nonobese Current Visit: Yes Status: Chronic Assessment and plan: poorly controlled DM. Ha1c 12.3. glucose levels are better. continue levemir bid. iss. diabetic diet. Start metformin upon discharge (4) Hyperlipidemia Current Visit: Yes Status: Acute Qualifiers: Hyperlipidemia type: pure hypercholesterolemia Qualified Code(s): E78.00 - Pure hypercholesterolemia, unspecified; E78.0 - Pure hypercholesterolemia - Subjective Interval history: The patient says that she is still having pain on her left hip mainly when she moves around, denies any shortness of breath, no chest pain, no fevers no dysuria no diarrhea or abdominal pain. - Constitutional Vitals: Temp Pulse Resp BP Pulse Ox 98 F 83 16 121/74 95 08/13/16 06:37 08/13/16 06:37 08/13/16 06:37 08/13/16 06:37 08/13/16 06:37 General appearance: Present: cooperative, A&O X 3, pleasant, no acute distress, answers questions appropriately - Head Head exam: Present: atraumatic, normocephalic - Eye Eye exam: Present: PERRL, conjuntiva pink, sclera anicteric Pupils: Present: PERRL - Neck Neck exam general surgery: Present: supple, trachea midline. Absent: lymphadenopathy - Respiratory Respiratory exam: Present: CTAB. Absent: accessory muscle use, rales, rhonchi, wheezes - Cardiovascular Cardiovascular exam: Present: RRR, +S1, +S2. Absent: diastolic murmur, gallop, rubs, systolic murmur - GI/Abdominal GI/Abdominal exam: Present: normal bowel sounds, soft, no peritoneal signs. Absent: distended, tenderness - Extremities Exam Extremities exam: Present: warm, radial pulses palpable and symetrical. Absent : calf tenderness, cyanotic, pedal edema Additional comments: Left hip surgical wound without signs of infection or hematoma - Neurological Exam Neurological exam: Present: CN II-XII intact, oriented X3, no focal deficits. Absent: pronater drift, facial droop, speech deficit - Skin Skin exam: Present: dry, intact Internal Medicine: Result - Labs CBC & Chem 7: 08/10/16 05:28 08/10/16 05:28 - ABG Interpretation ABG results: PT/INR, D-dimer PT 11.1 Seconds (9.4-12.1) 08/07/16 20:09 - VTE Documentation of Mechanical Device: Intermittent pneumatic compression device Consult Discharge Plan - Plan Additional Instructions: Follow with primary care physician within the next 7 days. Follow-up with orthopedic surgery within the next 2-3 weeks. Continue Levemir 10 units twice a day and NovoLog 3 units 3 times a day plus a sliding scale. Start metformin 500 mg twice daily. Continue Lovenox for DVT prophylaxis Referrals: Shanell Carroll MD [Primary Care Provider] - Prescriptions: OxyCODONE Immed Rel [Roxicodone 5 MG] 10 mg PO Q4HR PRN #25 tablet PRN Reason: Pain Insulin ASPART [Novolog Flexpen] 3 unit SQ TID 30 Days Insulin DETEMIR [Levemir] 10 unit SQ BID 30 Days metFORMIN [Glucophage] 500 mg PO BIDWM #60 tablet
[2016-08-13 11:45] VITALS: BP 126/78
== END 2016-08-13 17:21 | DRG 482 ==
LOC: EMEROO 18:49 → 3NENU 18:49 → SUATTDRO 21:59
PROVIDERS: ADMIT Internal Medicine; ATTEND Internal Medicine